=== PATIENT | female | born 1995 | race Caucasian/White ===

== ENCOUNTER 2018-02-18 02:07 | Emergency (ER) | payer SELFPAY | END 2018-02-18 02:52 | disposition left against medical advice (07) | LOC: ER 02:07 | DX: R10.9 Unspecified abdominal pain (principal); Z53.21 Procedure and treatment not carried out due to patient leaving prior to being seen by health care provider ==

== ENCOUNTER 2018-03-21 16:55 | Emergency (ER) | payer SELFPAY ==
[~2018-03-21] VITALS: Ht 157.5 cm; Wt 51.3 kg
--- NOTE | 2018-03-21 17:13 | PHYS DOC ---
Adult General Chief Complaint Chief Complaint: HEADACHE HPI HPI Patient is a 22 year old female who presents with migraine headache. Patient states she's been having this headache over the last several days. She has used [id number] medications without relief. She does have a prior history of similar headaches but states this one feels stronger than past. No focal neurologic complaints. No fever. No neck stiffness or rash. The patient does take Wellbutrin for depression and states that her doctor has been changing her dose around lately. She feels like this has been causing some adverse side effects including headaches and dizziness. She has some photophobia and nausea but she has had no vomiting. Review of Systems Review of Systems Constitutional: Denies fever or chills Eyes: Denies change in visual acuity HENT: Denies nasal congestion or sore throat Respiratory: Denies cough or shortness of breath Cardiovascular: No additional information not addressed in HPI GI: Denies abdominal pain Musculoskeletal: Denies back pain Integument: Denies rash Neurologic: Denies focal neurologic complaints All other systems were reviewed and found to be within normal limits, except as documented in this note. Current Medications Current Medications Current Medications Medications (Trade) Dose Ordered Sig/Yesenia Start Time Stop Time Status Last Admin Dose Admin Diphenhydramine HCl (Benadryl) 25 mg 1X ONCE 03/21/18 17:15 03/21/18 17:33 DC Ketorolac Tromethamine (Toradol 30mg Vial) 30 mg 1X ONCE 03/21/18 17:15 03/21/18 17:20 DC 03/21/18 17:36 30 MG Prochlorperazine Edisylate (Compazine) 10 mg 1X ONCE 03/21/18 17:15 03/21/18 17:20 DC 03/21/18 17:37 10 MG Sodium Chloride 1,000 ml @ 1,000 mls/hr 1X ONCE 03/21/18 17:15 03/21/18 18:14 03/21/18 17:34 1,000 MLS/HR Allergies Allergies Allergies Coded Allergies Type Severity Reaction Last Updated Verified No Known Drug Allergies 03/21/18 No Physical Exam Physical Exam Constitutional: Well developed, well nourished, no acute distress, non-toxic appearance HENT: Normocephalic, atraumatic, bilateral external ears normal, oropharynx moist Eyes: PERRLA, EOMI, conjunctiva normal Neck: Normal range of motion, no tenderness, supple Cardiovascular:Heart rate regular rhythm, no murmur Lungs & Thorax: Bilateral breath sounds clear to auscultation Skin: Warm, dry, no erythema Neurologic: Alert and oriented X 3, normal motor function, normal sensory function, no focal deficits noted Psychologic: Affect normal Musculoskeletal: Some old self-inflicted wounds on the left forearm, no new injuries seen Current Patient Data Vital Signs Vital Signs Date Time Temp Pulse Resp B/P (MAP) Pulse Ox O2 Delivery O2 Flow Rate FiO2 03/21/18 17:16 98.8 100 18 138/86 (103) 96 Room Air 98.8 Lab Values Laboratory Tests Test 03/21/18 17:27 POC Urine HCG, Qualitative Hcg negative (Negative) EKG EKG [] Radiology/Procedures Radiology/Procedures [] Course & Med Decision Making Course & Med Decision Making Pertinent Labs and Imaging studies reviewed. (See chart for details) Patient is seen and examined. She has a normal neurologic exam. Her headache did not come on suddenly. She doesn't prior history of migraines. Her physical exam is normal. Plan is for IV and fluids along with standard headache medications. 18:00: Patient's headache symptoms are currently improved. She is requesting discharge home. She does feel mildly anxious. The patient states she has anxiety at baseline. I did advise her that she could take some Benadryl at home which may help relieve her symptoms given that she did receive a dose of Compazine. The patient requested advice on how to discontinue her Wellbutrin. She does take longer acting formulation. She was advised to extend the dosage time by 6 hours every other day. She was strongly advised to contact her primary managing physician prior to stopping her antidepressant medication. Dragon Disclaimer Dragon Disclaimer This electronic medical record was generated, in whole or in part, using a voice recognition dictation system. Departure Departure Referrals: NO PCP (PCP) Scripts Butalb/Acetaminophen/Caffeine ([id number]) 1 Each Capsule 1 EACH PO TID for migraine, #15 TAB Prov: LIANET BROWN DO 03/21/18 LIANET BROWN DO Mar 21, 2018 17:13
[2018-03-21] MEDS ORDERED: KETOROLAC 30 MG/ML VIAL. IV ONE (17:15)
[2018-03-21] MEDS ORDERED: diphenhydrAMINE 50 MG/ML VIAL IVP ONE (17:15)
[2018-03-21] MEDS ORDERED: IV NORMAL SALINE 1000ML BAG 1,000 ML IV ONE (17:15)
[2018-03-21] MEDS ORDERED: PROCHLORPERAZINE 10 MG/2 ML VIAL. IV ONE (17:15)
[2018-03-21 17:16] VITALS: BP 138/86
[2018-03-21] MEDS ORDERED: BUTA1CAP57 PO (17:28)
[2018-03-21 17:33] LABS: BILIRUBIN,URINE NEGATIVE (NEG); CLARITY,URINE CLEAR; COLOR,URINE YELLOW; NITRITE,URINE NEGATIVE (NEG); PH,URINE 6.5; PROTEIN,URINE NEGATIVE (NEG-TRACE); UROBILINOGEN,URINE 0.2 mg/dL (0.2 mg/dL)
[2018-03-21 18:08] LABS: BACTERIA,URINE MANY /HPF (0-FEW); RBC,URINE 0 /HPF (0-2); SQUAMOUS EPITHELIAL CELL,UR MANY /LPF
== END 2018-03-21 18:10 | disposition home or self-care (01) ==
LOC: ER 16:55
DX: G43.909 Migraine, unspecified, not intractable, without status migrainosus (principal); S59.812A Other specified injuries left forearm, initial encounter; F32.9 Major depressive disorder, single episode, unspecified; Y33.XXXA Other specified events, undetermined intent, initial encounter; Y93.89 Activity, other specified; Y92.89 Other specified places as the place of occurrence of the external cause; Y99.8 Other external cause status
CPT/HCPCS: 81001; 81025; 96361; 96374; 96375; 99284; J0780; J1885; J7030

== ENCOUNTER → 2018-07-09 | Outpatient (CLI) | payer BC ==
[~2018-07-09] MED LIST: BUTA1CAP57 PO; GADOBUTROL 7.5 MMOL/7.5 ML VIAL IV ONE
--- NOTE | 2018-07-09 12:49 | EEG ---
DATE OF SERVICE: 07/09/2018 EEG NUMBER: [id number] OBJECTIVE: This is a 22-year-old female patient with history of seizure or seizure-like episodes. EEG was requested to evaluate seizure activity. METHODS: Twenty electrodes were applied according to the international 10-20 electrode placement system. EKG monitoring, hyperventilation, intermittent photic stimulation, monopolar and bipolar montages are routinely utilized. The record was obtained on a digital system with video monitoring. FINDINGS: 1. Background: The patient was recorded in the awake, drowsy, and sleep states. The overall background amplitude is 10-30 microvolts. A posterior dominant rhythm of 8-12 Hz is observed. 2. Abnormalities: No specific epileptiform discharge or electrographic seizure is seen. No focal or diffuse slowing. 3. Activation: Hyperventilation was performed with good efforts and normal response. Intermittent photic stimulation was performed with photic driving. No specific epileptiform discharge or electrographic seizure is induced. IMPRESSION: This EEG is a normal study for the awake, drowsy, and sleep states. No focal, lateralizing, specific epileptiform discharge or electrographic seizure is seen. ANNAMARIE BOOKER MD DR: DAMION/yajaira JOB#: [id number] / [id number]
--- NOTE | 2018-07-09 15:50 | RAD ---
EXAM: Brain MRI with and without contrast. HISTORY: Seizures. Diplopia. TECHNIQUE: Multiplanar, multisequence magnetic resonance imaging of the brain was performed prior to and following the administration of 6 cc Gadavist intravenous contrast. COMPARISON: None. FINDINGS: There is no restricted diffusion to suggest acute or subacute infarction. There is no susceptibility effect to suggest hemorrhage. There is no mass effect or midline shift. There is no hydrocephalus. No suspicious white matter lesion is seen. There is no heterotopia or malformation of cortical development. The hippocampi demonstrate symmetric size and signal. The orbits are unremarkable. There is a small left maxillary sinus mucous retention cyst. The mastoid air cells are clear. There are normal flow voids within the cerebral vessels. No enhancing lesion is seen. IMPRESSION: No acute intracranial finding or evidence of an epileptogenic lesion. Electronically signed by: Anayeli Alexandre MD (07/09/2018 3:47 PM) [id number]
== END | disposition home or self-care (01) ==
LOC: RT 07:53
PROVIDERS: ATTEND Psychiatry & Neurology Neurology
DX: H53.2 Diplopia (principal); J34.1 Cyst and mucocele of nose and nasal sinus; R56.9 Unspecified convulsions
CPT/HCPCS: 70553; 95816; A9585

== ENCOUNTER 2019-07-02 12:40 | Emergency (ER) | payer BC, OTHER ==
[~2019-07-02] VITALS: Ht 157.5 cm; Wt 50.0 kg
[~2019-07-02 12:40] MED LIST changes: -GADOBUTROL 7.5 MMOL/7.5 ML VIAL IV ONE
[2019-07-02] MEDS ORDERED: ONDANSETRON PF 4 MG/2 ML VIAL. IVP ONE (13:15)
[2019-07-02 13:20] LABS: BASO % 0 % (0-3); EOS % 0 % (0-3); HEMATOCRIT 37.8 % (36.0-47.0); HEMOGLOBIN 12.8 g/dL (12.0-15.5); LYMPH # 0.6 x10^3/uL (1.0-4.8); LYMPH % 6 % (24-48); MEAN CORPUSCULAR HEMOGLOBIN 30 pg (25-35); MEAN CORPUSCULAR HGB CONC 34 g/dL (31-37); MEAN CORPUSCULAR VOLUME 90 fL (79-100); MONO # 0.1 x10^3/uL (0.0-1.1); MONO % 1 % (0-9); NEUT # 8.6 x10^3/uL (1.8-7.7); NEUT % 92 % (31-73); PLATELET COUNT 256 x10^3/uL (140-400); RED CELL DISTRIBUTION WIDTH 12.9 % (11.5-14.5); WHITE BLOOD COUNT 9.3 x10^3/uL (4.0-11.0)
[2019-07-02 13:54] LABS: CALCIUM 8.9 mg/dL (8.5-10.1); CREATININE 0.8 mg/dL (0.6-1.0); GFR 88.1; POTASSIUM 3.7 mmol/L (3.5-5.1)
[2019-07-02 14:06] LABS: ALBUMIN 3.9 g/dL (3.4-5.0)
[2019-07-02 14:07] LABS: ALBUMIN/GLOBULIN RATIO 1.3 (1.0-1.7); TOTAL BILIRUBIN 0.2 mg/dL (0.2-1.0)
[2019-07-02] MEDS ORDERED: IV NORMAL SALINE 1000ML BAG 1,000 ML IV ONE (14:15)
[2019-07-02 14:39] LABS: % LYMPHS 7 % (24-48); % SEGS 93 % (35-66)
[2019-07-02 14:40] LABS: PLT ESTIMATE ADEQUATE (ADEQUATE)
--- NOTE | 2019-07-02 14:55 | EKG ---
[facility] [address] [place] [address] Test Date: 2019-07-02 Test Time: 13:17:13 Pat Name: ZENAIDA DUMONT Department: Room: Gender: F Pump Servicer: : [id number] Requested By: LIZANDRO TORRES Order Number: [id number] Reading MD: Measurements Intervals [place] Rate: 78 P: 54 MN: 154 QRS: 75 QRSD: 84 T: 59 QT: 382 QTc: 439 Interpretive Statements SINUS RHYTHM ST & T ABNORMALITY, CONSIDER RECENT INFERIOR MYOCARDIAL OR PERICARDIAL DAMAGE ABNORMAL ECG RI6.01 No previous ECG available for comparison
[2019-07-02] MEDS ORDERED: levETIRAcetam 500 MG TABLET PO STA (15:24)
[2019-07-02] MEDS ORDERED: LEVE500T56 PO (15:37)
--- NOTE | 2019-07-02 15:37 | PHYS DOC ---
Past Medical History Past Medical History: Asthma, Depression, Migraines, Seizure, Other Additional Past Medical Histor: orthostatic tachycardia Past Surgical History: Other Additional Past Surgical Histo: right side wisdom teeth Smoking Status: Never Smoker Alcohol Use: Rarely Drug Use: None Adult General Chief Complaint Chief Complaint: SEIZURE HPI HPI Patient is a 23 year old female with history of migraine headache, depression, seizure and asthma who presents EMS with complaint of seizure. Patient states she had wisdom teeth removal today and within felt dizzy and nauseous and had his seizure as a grand mal seizure that was missed by her partner. Seizure last about 1 minute and patient thought maybe she had a urinary incontinence. Patient was confused after seizure. Patient denies headache, using drugs or alcohol, lack of sleep. Patient states she had several episodes of seizure 3 years ago and had negative EEG and was not started on seizure medication. Review of Systems Review of Systems Constitutional: Denies fever or chills [] Eyes: Denies change in visual acuity, redness, or eye pain [] HENT: Denies nasal congestion or sore throat [] Respiratory: Denies cough or shortness of breath [] Cardiovascular: No additional information not addressed in HPI [] GI: Denies abdominal pain, nausea, vomiting, bloody stools or diarrhea [] : Denies dysuria or hematuria [] Musculoskeletal: Denies back pain or joint pain [] Integument: Denies rash or skin lesions [] Neurologic: Denies headache, focal weakness or sensory changes [] Endocrine: Denies polyuria or polydipsia [] All other systems were reviewed and found to be within normal limits, except as documented in this note. Current Medications Current Medications Current Medications Medications (Trade) Dose Ordered Sig/Yesenia Start Time Stop Time Status Last Admin Dose Admin Levetiracetam (Keppra) 500 mg 1X STAT 07/02/19 15:24 07/02/19 15:27 DC 07/02/19 15:44 500 MG Lorazepam (Ativan Inj) 1 mg 1X ONCE 07/02/19 14:15 07/02/19 14:16 DC 07/02/19 13:58 1 MG Ondansetron HCl (Zofran) 4 mg 1X ONCE 07/02/19 13:15 07/02/19 13:16 DC 07/02/19 13:25 4 MG Sodium Chloride 1,000 ml @ 1,000 mls/hr 1X ONCE 07/02/19 14:15 07/02/19 15:14 DC 07/02/19 14:23 1,000 MLS/HR Allergies Allergies Allergies Coded Allergies Type Severity Reaction Last Updated Verified No Known Drug Allergies 03/21/18 No Physical Exam Physical Exam Constitutional: Well developed, well nourished, mild distress, non-toxic appearance. [] HENT: Normocephalic, atraumatic. Eyes: PERRLA, EOMI, conjunctiva normal, no discharge. [] Neck: Normal range of motion, no tenderness, supple, no stridor. [] Cardiovascular:Heart rate regular rhythm, no murmur [] Lungs & Thorax: Bilateral breath sounds clear to auscultation [] Abdomen: Bowel sounds normal, soft, no tenderness, no masses, no pulsatile masses. [] Skin: Warm, dry, no erythema, no rash. [] Back: No tenderness, no CVA tenderness. [] Extremities: No tenderness, no cyanosis, no clubbing, ROM intact, no edema. [] Neurologic: Alert and oriented X 3, no focal deficits noted. [] Psychologic: Affect normal, judgement normal, mood normal. [] Current Patient Data Vital Signs Vital Signs Date Time Temp Pulse Resp B/P (MAP) Pulse Ox O2 Delivery O2 Flow Rate FiO2 07/02/19 15:43 96 17 110/62 (78) Room Air 07/02/19 12:40 98.2 99 98.2 Lab Values Laboratory Tests Test 07/02/19 12:50 07/02/19 15:20 White Blood Count 9.3 x10^3/uL (4.0-11.0) Red Blood Count 4.20 x10^6/uL (3.50-5.40) Hemoglobin 12.8 g/dL (12.0-15.5) Hematocrit 37.8 % (36.0-47.0) Mean Corpuscular Volume 90 fL (79-100) Mean Corpuscular Hemoglobin 30 pg (25-35) Mean Corpuscular Hemoglobin Concent 34 g/dL (31-37) Red Cell Distribution Width 12.9 % (11.5-14.5) Platelet Count 256 x10^3/uL (140-400) Neutrophils (%) (Auto) 92 % (31-73) H Lymphocytes (%) (Auto) 6 % (24-48) L Monocytes (%) (Auto) 1 % (0-9) Eosinophils (%) (Auto) 0 % (0-3) Basophils (%) (Auto) 0 % (0-3) Neutrophils # (Auto) 8.6 x10^3/uL (1.8-7.7) H Lymphocytes # (Auto) 0.6 x10^3/uL (1.0-4.8) L Monocytes # (Auto) 0.1 x10^3/uL (0.0-1.1) Eosinophils # (Auto) 0.0 x10^3/uL (0.0-0.7) Basophils # (Auto) 0.0 x10^3/uL (0.0-0.2) Segmented Neutrophils % 93 % (35-66) H Lymphocytes % 7 % (24-48) L Platelet Estimate Adequate (ADEQUATE) Sodium Level 140 mmol/L (136-145) Potassium Level 3.7 mmol/L (3.5-5.1) Chloride Level 104 mmol/L (98-107) Carbon Dioxide Level 23 mmol/L (21-32) Anion Gap 13 (6-14) Blood Urea Nitrogen 11 mg/dL (7-20) Creatinine 0.8 mg/dL (0.6-1.0) Estimated GFR (Cockcroft-Gault) 88.1 BUN/Creatinine Ratio 14 (6-20) Glucose Level 139 mg/dL (70-99) H Lactic Acid Level 2.3 mmol/L (0.4-2.0) H Calcium Level 8.9 mg/dL (8.5-10.1) Total Bilirubin 0.2 mg/dL (0.2-1.0) Aspartate Amino Transferase (AST) 19 U/L (15-37) Alanine Aminotransferase (ALT) 26 U/L (14-59) Alkaline Phosphatase 67 U/L (46-116) Total Protein 7.0 g/dL (6.4-8.2) Albumin 3.9 g/dL (3.4-5.0) Albumin/Globulin Ratio 1.3 (1.0-1.7) Urine Opiates Screen Pos (NEG) Urine Methadone Screen Neg (NEG) Urine Barbiturates Neg (NEG) Urine Phencyclidine Screen Neg (NEG) Urine Amphetamine/Methamphetamine Neg (NEG) Urine Benzodiazepines Screen Pos (NEG) Urine Cocaine Screen Neg (NEG) Urine Cannabinoids Screen Neg (NEG) Urine Ethyl Alcohol Neg (NEG) Laboratory Tests 07/02/19 12:50 Laboratory Tests 07/02/19 12:50 EKG EKG EKG interpreted by me. EKG at 1317 showed normal sinus rhythm at rate of 78, no acute ST and T-wave elevation, normal SD and QT intervals. Radiology/Procedures Radiology/Procedures [] Course & Med Decision Making Course & Med Decision Making Pertinent Labs reviewed. (See chart for details) Evaluation of patient in ER showed 23-year-old female patient with history of seizure without taking medication brought in by EMS because of a seizure that was witnessed by her partner. Patient had unremarkable physical exam and labs except for mild elevation of lactic acid of 2.3. Anita was consulted at 1522 and recommended to start Keppra 500 mg to starting the first dose in ER and follow up with her primary care physician or neurologist. I've spoken with the patient and/or caregivers. I've explained the patient's condition, diagnosis and treatment plan based on information available to me at this time. I've answered the patient's and/or caregivers questions and addressed any concerns. The patient and/or caregivers have a good understanding the patient's diagnosis, condition and treatment plan as can be expected at this point. Vital signs have been stabilized. The patient's condition is stable for discharge from the emergency department. The patient will pursue further outpatient evaluation with her primary care provider or other designated consulting physician as outlined in the discharge instructions. Patient and/or caregivers are agreeable to this plan of care and follow-up instructions have been explained in detail. The patient and/or caregivers have received these instructions in written format and expressed understanding of these discharge instructions. The patient and her caregivers are aware that if any significant change in condition or worsening of symptoms should prompt him to immediately return to this of the closest emergency department. If an emergent department is not readily available I would encourage him to call 911. [place] Disclaimer Dragon Disclaimer This electronic medical record was generated, in whole or in part, using a voice recognition dictation system. Departure Departure Impression: Primary Impression: Recurrent seizures Disposition: HOME, SELF-CARE (at 1535) Condition: IMPROVED Referrals: CESAR GOULD MD Patient Instructions: Seizure, Adult Additional Instructions: Drink plenty of liquids Follow-up with your primary care physician in 2-3 days Follow up with neurology on-call in 2 or 3 days Return to ER if not getting better Thank you for visiting [facility]. We appreciate you trusting us with your care. If any additional problems come up don't hesitate to return to visit us. Please follow up with your primary care provider so they can plan additional care if needed and know about the problem that you had. If symptoms worsen come back to the Emergency Department. Any concerning symptoms that start such as chest pain, shortness of air, weakness or numbness on one side of the body, running high fevers or any other concerning symptoms return to the ER. Scripts Levetiracetam (KEPPRA) 500 Mg Tablet 1 TAB PO BID for 30 Days, #60 TAB 0 Refills Prov: LIZANDRO TORRES MD 07/02/19 LIZANDRO TORRES MD Jul 02, 2019 15:37
[2019-07-02 15:56] LABS: AMPHETAMINE/METHAMPHETAMINE NEG (NEG); BARBITURATES NEG (NEG); BENZODIAZEPINES POS (NEG); CANNABINOIDS NEG (NEG); COCAINE NEG (NEG); METHADONE NEG (NEG); OPIATES POS (NEG); PHENCYCLIDINE NEG (NEG)
[2019-07-02 16:21] VITALS: BP 116/65
== END 2019-07-02 16:25 | disposition home or self-care (01) ==
LOC: ER 12:40
DX: G40.802 Other epilepsy, not intractable, without status epilepticus (principal); R11.0 Nausea; R42 Dizziness and giddiness; J45.909 Unspecified asthma, uncomplicated; F32.9 Major depressive disorder, single episode, unspecified; G43.909 Migraine, unspecified, not intractable, without status migrainosus; Z98.890 Other specified postprocedural states
CPT/HCPCS: 36415; 80053; 80307; 83605; 85007; 85025; 93005; 96361; 96374; 96375; 99285; J2060; J2405; J7030